=== PATIENT | male | born 1960 | race Two or more races ===

== ENCOUNTER 2018-11-09 19:12 | Emergency (ER) | payer SELFPAY ==
[~2018-11-09] VITALS: Ht 157.5 cm; Wt 63.5 kg
[2018-11-09] MEDS ORDERED: oxyCODONE/APAP (5/325 MG) 1 UDTAB TABLET PO ONE (19:30)
[2018-11-09] MEDS ORDERED: KETOROLAC TROMETHAMINE INJ 60 MG/2 ML VIAL IM ONE (19:30)
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
[2018-11-09] MEDS ORDERED: oxyCODONE/APAP (5/325 MG) 1 UDTAB TABLET ONE (19:34)
[2018-11-09] MEDS ORDERED: KETOROLAC TROMETHAMINE 15 MG/ML VIAL ONE (19:34)
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
[2018-11-09 20:00] VITALS: BP 135/88
--- NOTE | 2018-11-09 20:37 | NUR ---
Patient discharged to home in stable condition. Written and verbal after care instructions given. Patient verbalizes understanding of instruction.
== END 2018-11-09 20:39 | disposition home or self-care (01) ==
LOC: ER 19:12
DX: S02.81XA Fracture of other specified skull and facial bones, right side, initial encounter for closed fracture (principal); S02.2XXA Fracture of nasal bones, initial encounter for closed fracture; R04.0 Epistaxis; R51 Headache; Z60.2 Problems related to living alone; X58.XXXA Exposure to other specified factors, initial encounter; Y93.89 Activity, other specified; Y92.89 Other specified places as the place of occurrence of the external cause; Y99.8 Other external cause status
CPT/HCPCS: 70450; 70486; 96372; 99284; J1885